=== PATIENT | female | born 1985 | race Caucasian/White ===

== ENCOUNTER 2019-03-14 21:44 | Emergency (ER) | payer BC ==
[~2019-03-14] VITALS: Ht 167.6 cm; Wt 70.8 kg
--- NOTE | 2019-03-14 22:02 | NUR ---
at bedside for MSE
[2019-03-14] MEDS ORDERED: IBUPROFEN 600 MG TABLET PO ONE (22:15)
[2019-03-14] MEDS ORDERED: IBUPROFEN 600 MG TABLET ONE (22:29)
--- NOTE | 2019-03-14 22:34 | NUR ---
Patient discharged to home in stable conditon. Written and verbal after care instructions given. Patient verbalizes understanding of instructions. Pt. d/c w/ prescription per MD order, d/c papers signed, all belongings w/ pt., ID band removed, ambulated off unit using crutches accompanied by male varnish inspector, ESTEFANIA
== END 2019-03-14 22:35 | disposition home or self-care (01) ==
LOC: ER 21:44
DX: S86.012A Strain of left Achilles tendon, initial encounter (principal); W51.XXXA Accidental striking against or bumped into by another person, initial encounter; Y93.61 Activity, american tackle football; Y92.89 Other specified places as the place of occurrence of the external cause; Y99.8 Other external cause status
CPT/HCPCS: A4663